=== PATIENT | male | born 1970 | race Caucasian/White ===

== ENCOUNTER → 2024-04-21 06:12 | Day surgery (SDC) | payer BC, SELFPAY | LOC: GI 06:12 | PROVIDERS: ATTENDING PHYSICIAN Internal Medicine | DX: Z12.11 Encounter for screening for malignant neoplasm of colon (principal); D12.2 Benign neoplasm of ascending colon; D12.4 Benign neoplasm of descending colon | CPT/HCPCS: 45385; 45380; 88305 ==

== ENCOUNTER 2024-07-25 01:38 | Inpatient (IN) | payer BC, SELFPAY ==
[2024-07-24 21:29] VITALS: BP 150/98
[2024-07-24 21:47] LABS: % Basophils 0.5 % (0-2); % Immature Granulocytes 0.4 % (0-0.5); % Monocytes 5.5 % (1.7-9.3); % Neutrophils 71.6 % (42.2-75.2); Absolute Basophils 0.1 10^3/uL (0-0.2); Absolute Eosinophils 0.1 10^3/uL (0-0.7); Absolute Immature Granulocytes 0.1 10^3/uL (0-0.05); Absolute Lymphocytes 2.8 10^3/uL (1.2-3.4); Absolute Monocytes 0.7 10^3/uL (0.1-0.6); Absolute Neutrophils 9.5 10^3/uL (1.4-6.5); Hematocrit 44.4 % (39.0-52.0); Hemoglobin 15.8 g/dL (13.0-18.0); Mean Corp Hgb Conc. 35.6 g/dL (33.0-37.0); Mean Corpuscular Hgb 31.7 pg (27.0-31.0); Mean Platelet Volume 9.8 fL (7.4-10.4); Nucleated Red Blood Cells % 0 % (-); Platelet Count 235 10^3/uL (130-400); Red Blood Cell Count 4.99 10^6/uL (4.70-6.10); Red Cell Dist. Width 12.2 % (11.5-14.5); Urine Albumin Trace (Neg - Trace); Urine Bilirubin Negative (Negative); Urine Character Slightly Cloudy (Clear); Urine Color Yellow; Urine Glucose Negative (Negative); Urine Ketone Trace (Negative); Urine Leukocyte Trace (Negative); Urine Nitrite Negative (Negative); Urine Occult Blood 4+ (Negative); Urine Urobilinogen Negative (Neg - 1+); White Blood Cell Count 13.2 10^3/uL (4.8-10.8)
[2024-07-24] MEDS: ZOFRAN 4 MG IV (21:47)
[2024-07-24] MEDS: TORADOL 15 MG IV (21:56)
[2024-07-24 22:01] LABS: ALT (SGPT) 33 U/L (0-50); AST (SGOT) 27 U/L (17-59); Albumin 4.7 g/dl (3.5-5.0); Alkaline Phosphatase 78 U/L (38-126); Blood Urea Nitrogen 23 mg/dl (9-20); Calcium 10.1 mg/dl (8.4-10.2); Carbon Dioxide 27 mmol/L (22-30); Chloride 100 mmol/L (98-107); Glucose 164 mg/dl (70-99); Potassium 3.9 mmol/L (3.5-5.1); Sodium 139 mmol/L (135-145); Total Bilirubin 0.7 mg/dl (0.2-1.3); Total Protein 7.2 g/dl (6.3-8.2); Urine Mucus Moderate; Urine Squamous Cell 0-2 /LPF (Few); eGFR 59.73
[2024-07-24 22:02] LABS: Urine Bacteria Moderate (Negative); Urine Red Blood Cell 70-80 /HPF (0-2); Urine White Cell 0-2 /HPF (0-5)
[2024-07-24] MEDS: NSS 1000 IV (23:46)
[2024-07-24] MEDS: DILAUDID 0.5 MG IV (23:47)
[2024-07-24 23:54] VITALS: BMI 24.0
[2024-07-25] VITALS (17 sets, daily range): BP systolic 116–154; BP diastolic 70–89; BMI 23.4
--- NOTE | 2024-07-25 00:23 | ED.GENMED ---
History of Present Illness
General
Chief Complaint: Flank Pain
Source: patient
Exam Limitations: none
Time Seen by Provider: 07/24/24 23:30
History of Present Illness
History of Present Illness:
Started with left flank back pain yesterday. Some nausea and vomiting. No fever. Remote history of kidney stones. Pain is moderate in nature. No significant relief after Toradol
Past History
Past History
ED Past Medical History: None
ED Past Surgical History: Appendectomy and Cholecystectomy
Social History
Tobacco: Non-smoker
Alcohol: None
Drug: None
Personal:
Living: with family
Review of Systems
Review of Systems
All Other Systems: Not applicable
Constitutional: Denies fever
Respiratory: Reports no symptoms
Phy Exam
Physical Exam
Physical Exam:
GENERAL: Alert and oriented. Nontoxic but appears uncomfortable
EYE: Orbits normal.
NECK: Supple, no significant adenopathy.
ENT: Pharynx without erythema
CARDIAC: Regular rate and rhythm without any obvious murmurs.
LUNGS: Clear breath sounds,normal
ABDOMEN: Soft, without focal tenderness or distention. Mild left CVA tenderness
NEUROLOGICAL: Alert and oriented , grossly non-focal
SKIN: Warm and dry, no rash or lesion, no discoloration, skin intact.
MUSCULOSKELETAL: No edema,no deformity.Good color
PSYCH: Normal and appropriate interaction.
Course
Orders/Labs/Results
Orders:
Orders
07/24/24 21:37
Ketorolac [Toradol] 15 mg .ROUTE .STK-MED ONE
Ondansetron Injectable [Zofran] 4 mg .ROUTE .STK-MED ONE
07/24/24 21:41
Complete Blood Count/With Diff Urgent
Comprehensive Metabolic Panel Urgent
Urinalysis Reflex To Culture Urgent
Date Specimen was Collected: 12/08/24
Time Specimen was Collected: 21:32
Urine Microscopic Reflex Cult Urgent
Urine Culture Urgent
CLOVER Source: U
Specimen Description:
Date Specimen was Collected: 07/24/24
Time Specimen was Collected: 21:32
07/24/24 21:44
Ketorolac [Toradol] 15 mg IV NOW STA
07/24/24 21:45
Ketorolac [Toradol] 15 mg IV NOW STA
07/24/24 21:46
Ondansetron Injectable [Zofran] 4 mg IV NOW STA
07/24/24 21:56
CT Abd/pel Without Iv Or Oral Urgent
Comment:
Reason For Exam: flank pain
07/24/24 23:39
IV Insert/Care/Rem.- Treatment PRN
0.9% Sodium Chloride 1000 ml [Nss] 1,000 ml IV BOLUS
HYDROmorphone [Dilaudid] 0.5 mg IV NOW STA
07/25/24 00:22
CefTRIAXone [Rocephin] 1,000 mg IV NOW STA
Abnormal Lab Results
07/24/24
21:41
WBC 13.2 H 10^3/uL
(4.8-10.8)
MCH 31.7 H pg
(27.0-31.0)
Abs Immat Gran (auto) 0.1 H 10^3/uL
(0-0.05)
Absolute Neuts (auto) 9.5 H 10^3/uL
(1.4-6.5)
Absolute Monos (auto) 0.7 H 10^3/uL
(0.1-0.6)
BUN 23 H mg/dl
(9-20)
Creatinine 1.4 H mg/dL
(0.7-1.3)
Glucose 164 H mg/dl
(70-99)
Urine Ketones Trace A
(Negative)
Ur Occult Blood Reflex 4+ A
(Negative)
Leukocyte Esterase Rfl Trace A
(Negative)
Urine RBC 70-80 A /HPF
(0-2)
Urine Bacteria (Reflex) Moderate A
(Negative)
07/24/24 21:41
07/24/24 21:41
Vital Signs
Initial and Last Documented VS:
Initial Vital Signs
Temp Pulse Resp BP Pulse Ox
97.7 F 93 18 150/98 100
07/24/24 21:29 07/24/24 21:29 07/24/24 21:29 07/24/24 21:29 07/24/24 21:29
Last Documented Vital Signs
Temp Pulse Resp BP Pulse Ox
97.7 F 93 18 150/98 100
07/24/24 21:29 07/24/24 21:29 07/24/24 21:29 07/24/24 21:29 07/24/24 21:29
MDM/Problems Addressed
Differential Diagnosis Includes:
Patient with obstructing stone. Slight dehydration elevation in creatinine. Moderate bacteria with 0-2 squamous although relatively insignificant leukocyte esterase and nitrate. With these issues elevated white count pain management patient will
be admitted. Urology aware
*Radiology
Radiology exam reviewed: radiology read reviewed (6 mm obstructing stone left proximal ureter with hydronephrosis)
*Pulse Oximetry
Patient hypoxic: no
*Critical Care Note
Total Time (30-74mins, 75-104mins- exclusive of procedures): Not Applicable
ED Attending Note
-
Portions of this chart may have been created with voice recognition software.� Occasional wrong word or��sound alike� substitutions may have occurred due to the inherent limitations of voice recognition software.
Discharge Plan
Departure
Patient Disposition: Admit
Date of Disposition: 07/25/24
Time of Disposition: 00:25
Presentation/result/management discussed w/ accepting MD/DO: darlene
Discharge Problem:
6 mm obstructing left ureteral stone, Leukocytosis, Bacteria in urine
Prescriptions:
No Action
oxycodone-acetaminophen 5 MG/325 MG tablet
1 tab PO Q4HPRN PRN (Reason: pain) Qty: 17 0RF
tamsulosin 0.4 MG capsule
0.4 mg PO DAILY Qty: 7 0RF
ondansetron 4 MG tablet,disintegrating
4 mg PO TIDPRN PRN (Reason: NAUSEA) Qty: 9 0RF
Referrals:
Jamin Carter DO [Family Provider] -
Interventions
Interventions:
*Risk Screen - Suicide Last Done: 07/24/24 21:29
*General Assessment Last Done: 07/24/24 21:29
*Neglect/Abuse Screening Last Done: 07/24/24 21:29
ED- Fall Risk Assessment Last Done: 07/24/24 23:40
*ED COVID-19 Vaccine History Last Done: 07/24/24 23:40
YO-Syrgpd-Xkwzhejeex Assessment Last Done: 07/24/24 23:40
ED-Male Genitourinary Assessment Last Done: 07/24/24 23:40
Discharge Date and Time
Print Language: PASHTO
[2024-07-25] MEDS: ROCEPHIN 1000 MG IV ×2 (01:06→23:38)
--- NOTE | 2024-07-25 01:32 | HPS.HSE ---
Family Physician
-
Family Physician: Jamin Carter,
Chief Complaint
-
Flank pain
History of Present Illness
Patient will has no significant past medical history except for prior episode of nephrolithiasis presents to emergency department flank pain.
Patient reports 1 day history of left-sided flank pain that started suddenly. He has been persistent sharp pain. He reports nausea. Denies any vomiting. He denies any fevers or chills. He denies dysuria. He denies hematuria.
On arrival in the emergency department he was normotensive at 150/90 with a pulse of 97 and temperature of 97.7. He had leukocytosis to 10,000 CBC otherwise unremarkable. Creatinine was 1.4, it was 1.22 years ago. UA was negative for WBCs and
nitrites but positive for moderate bacteria and trace leukocyte esterase. There was blood.
CT of the abdomen pelvis revealed an obstructing 6 mm left ureteral stone with mild hydronephrosis.
Medical History
Past Medical History
Past Medical History: Reports Other
Additional Past Medical History:
nephrolithiasis
Past Surgical History: Reports Cholecystectomy
Social History
Tobacco: Non-smoker
Alcohol: Occasional
Drug: None
Personal:
Living: With Family
Employment: Employed
Family History
Family History: Not pertinent
Allergies / Home Medications
Allergies reflects when Allergies were last updated in [facility].
Home Medications with original date entered in [facility]
Allergy/Medication List:
Allergies
Allergy/AdvReac Type Severity Reaction Status Date / Time
No Known Allergies Allergy Verified 07/24/24 21:29
Home Medications
cetirizine 10 mg tablet (Zyrtec) 10 mg PO DAILY 07/25/24
Review of Systems
-
Constitutional: Reports No Symptoms
EENT: Reports No Symptoms
Respiratory: Reports No Symptoms
Cardiac: Reports No Symptoms
Abdomen/GI: Reports No Symptoms
: Reports Flank Pain
Musculoskeletal: Reports No Symptoms
Skin: Reports No Symptoms
Neurological: Reports No Symptoms
Endocrine: Reports No Symptoms
Hematologic/Lymphatic: Reports No Symptoms
Psych: Reports No Symptoms
Physical Exam
Vital Signs
Vital Signs
Temp Pulse Resp BP Pulse Ox
97.7 F 93 18 150/98 100
07/24/24 21:29 07/24/24 21:29 07/24/24 21:29 07/24/24 21:29 07/24/24 21:29
Physical Exam
General: Well Developed, Well Nourished, No Apparent Distress and Comfortable
HEENT: NormoCephalic, Moist mucous membranes and Atraumatic
Respiratory: Clear
Cardiac: S1/S2 and Regular Rhythm
GI: Soft, Non Tender, Non Distended and Normal Bowel Sounds
Rectal: Deferred by Provider
Genito-urinary: Deferred by me
Musculoskeletal: No Clubbing, No Cyanosis and No Edema
Skin: Warm
Neuro: AO x 3
Hematologic/Lymphatic: No Lymphadenopathy
Psych: Calm
Laboratory Results
-
07/24/24 21:41
07/24/24 21:41
Laboratory Results
Total Bilirubin 0.7 mg/dl (0.2-1.3) 07/24/24 21:41
AST 27 U/L (17-59) 07/24/24 21:41
ALT 33 U/L (0-50) 07/24/24 21:41
Alkaline Phosphatase 78 U/L (38-126) 07/24/24 21:41
Data Reviewed
-
CT Scan: Report Reviewed by me
Lab Data: Labs Reviewed by me
Old Records: Reviewed
Impression/Plan
-
IMPRESSION:
Left, urolithiaisis with mild hydronephrosis. Leukocytosis but otherwise stable. Renal function appears stable.
PLAN:
1. Kidney stone
- admit to med/surg
- npo
- pain control and antiemetics
- gentle hydration
- tamsulosin
- ceftriaxone
- strain urine
- urology consultation
DVT PPX - SCDs for now
Code status - Full Code
[2024-07-25] MEDS: DILAUDID 0.5 MG IV ×3 (02:43→17:04)
[2024-07-25] MEDS: TORADOL 10 MG IV (03:37)
[2024-07-25] MEDS: LR 1000 IV ×2 (03:40→17:47)
--- NOTE | 2024-07-25 04:05 | CON.MD ---
Consultation - Medical
-
see dictated note
pt with left renal colic- pain poorly controlled
+ bacteria in urine/ cr slightly elevated
reviewed options- plan for OR tonight for stent- possible ureteroscopy
risks, benefits, alternatives and disabilities reviewed
--- NOTE | 2024-07-25 04:09 | PTCARENOTE ---
Pt arrived via stretcher from ED. pt was able to ambulate to bed from stretcher. VSS. complains of 5/10 pain (see MAR). head to toe assessment complete. bed in lowest position and locked. oriented to room and call cardozo. t
[2024-07-25 06:45] LABS: Hematocrit 41.3 % (39.0-52.0); Hemoglobin 14.1 g/dL (13.0-18.0); Mean Corp Hgb Conc. 34.1 g/dL (33.0-37.0); Mean Corpuscular Hgb 31.2 pg (27.0-31.0); Mean Corpuscular Volume 91.4 fL (80.0-94.0); Platelet Count 186 10^3/uL (130-400); Red Blood Cell Count 4.52 10^6/uL (4.70-6.10); Red Cell Dist. Width 12.2 % (11.5-14.5); White Blood Cell Count 10.6 10^3/uL (4.8-10.8)
[2024-07-25 06:52] LABS: Blood Urea Nitrogen 25 mg/dl (9-20); Calcium 9.5 mg/dl (8.4-10.2); Carbon Dioxide 26 mmol/L (22-30); Chloride 106 mmol/L (98-107); Estimated Creatinine Clearance 67 ml/min; Glucose 122 mg/dl (70-99); Potassium 4.6 mmol/L (3.5-5.1); Sodium 140 mmol/L (135-145); eGFR > 60.00
[2024-07-25] MEDS: FLOMAX 0.4 MG PO (09:01)
[2024-07-25] MEDS: ZYRTEC 10 MG PO (09:01)
--- NOTE | 2024-07-25 10:34 | CM ---
Reviewed the chart notes and spoke with the patient at the bedside. Patient admitted left ureteral calculus. Left stent placement and possible ureteroscopy today. The patient resides with his and daughter in a two story home with
approximately three steps to enter. The patient reports no DME/VN/SNF in the past. The patient confirmed his pharmacy of choice is the [facility] [place]. continues to be available to patient/family and is monitoring medical plan
for needs at discharge.
Plan: Discharge to home when medically stable.
[2024-07-25 11:14] LABS: Glycohemoglobin (HgbA1c) 5.4 % (4.0-5.6)
--- NOTE | 2024-07-25 12:12 | W.PN.HOSP.TC ---
Today's Communication/Plan
-
Continue n.p.o. and IV fluids. Likely 4 OR later today. Strain all urine
Continue ceftriaxone
Await cultures.
Assessment / Plan
Assessment / Plan
53-year-old male with history of nephrolithiasis presenting with flank pain
CT abdomen and pelvis-6 mm proximal left ureteral calculus with mild left hydro utero nephrosis
Cardiovascular system S1 S2 Appreciated.
Chest clear to auscultation
Abdomen soft right lumbar area/CVA angle tenderness
No pedal edema noted.
# Nephrolithiasis with mild hydroureteronephrosis
Continue hydration
Continue ceftriaxone and wait for urine cultures
Strain urine
Continue Flomax
Urology evaluation for possible cystoscopy ureteroscopy/stent
Renal function stable
# Hyperglycemia-check hemoglobin A1c
# Degenerative changes at L5-S1 with small to moderate posterior disc protrusion
# DVT prophylaxis-SCDs for now
# Full code
Plan of care discussed with the patient.
Anticipated Discharge: Within 24 hours
Subjective/Interval History
-
Date of Service: July 25, 2024
Objective Data
-
Labs:
Laboratory Results
07/25/24
06:06
WBC 10.6
Hgb 14.1
Hct 41.3
Plt Count 186 D
Sodium 140
Potassium 4.6
Chloride 106
Carbon Dioxide 26
BUN 25 H
Creatinine 1.3
Glucose 122 H
Calcium 9.5
Vital Signs:
Vital Signs
Temp Pulse Resp BP Pulse Ox
97.6 F 79 18 116/70 97
07/25/24 08:00 07/25/24 08:00 07/25/24 08:00 07/25/24 08:00 07/25/24 08:00
I&O
12/04/0907/25/24 07/26/24
06:59 06:59 06:59
Intake Total 300 / 300
Output Total 150 / 150
Balance 150 / 150
--- NOTE | 2024-07-25 16:27 | W.IMMPOSTOP ---
Surgical Immed Post Op Note
-
Primary Surgeon:
darlene
Assisting Surgeon:
Pre-op Diagnosis:
left ureteral stone
Post-op Diagnosis:
left ureteral stone and mid ureteral stx
Procedure Performed:
cysto/left retrograde/left ureteroscopy and stent
Anesthesia Type:
gen
Specimen / Cultures:
none
Estimated Blood Loss:
2cc
Complications:
none
Operative Findings:
large prox stone
could not pass ureteroscopy due to mid ureteral narrowing
stent placed
discharge tonight if stable on empiric cefdinir- no evid of infx at time of surgery
outpt stone surgery in 2 weeks
[2024-07-25] MEDS: Pyridium 200 MG PO (17:05)
--- NOTE | 2024-07-25 18:27 | PTCARENOTE ---
pt returned to room from PACU @1800. pt alert and awake. pt educated regarding post operative plan of care with verbalized understanding. offering n/o pain at present time. tolerating sips of catherine freddy. pt instructed to order dinner. pt
verbalized desire to stay tonight for pain management. IVF restarted. remains due to void. care ongoing.
[2024-07-25] MEDS: SENOKOT-S 1 TABLET PO (20:18)
[2024-07-25] MEDS: FLUSH (NSS) 2 FLUSH IV (23:38)
[2024-07-25] MEDS: STERILE WATER FOR INJECTION 10 ML IV (23:38)
[2024-07-26 03:10] VITALS: BP 124/73
[2024-07-26] MEDS: LR 1000 IV (05:31)
[2024-07-26 07:28] LABS: Blood Urea Nitrogen 21 mg/dl (9-20); Calcium 8.9 mg/dl (8.4-10.2); Carbon Dioxide 26 mmol/L (22-30); Chloride 105 mmol/L (98-107); Estimated Creatinine Clearance 79 ml/min; Glucose 104 mg/dl (70-99); Potassium 4.1 mmol/L (3.5-5.1); Sodium 140 mmol/L (135-145); eGFR > 60.00
--- NOTE | 2024-07-26 08:11 | W.PN.URO.CBU ---
Today's Communication / Plan
-
discharge
Assessment / Plan
-
stone s/p stent
again reviewed instructions with pt and (by phone)
for discharge today with cefdinir- i will follow up ucx as outpt
pt to call office to schedule stone surgery
Diagnosis
-
Date of Service: July 26, 2024
-
Patient Diagnosis:
stone
Post Op Day:
left ureteral stent 07/25
Subjective
-
pt stayed overnight due to some nausea
feels better this am
no fevers
Objective
-
Vital Signs
Temp Pulse Resp BP Pulse Ox
98.2 F 86 18 124/73 96
07/26/24 03:10 07/26/24 03:10 07/26/24 03:10 07/26/24 03:10 07/26/24 03:10
Intake and Output
07/25/24 07/26/24 07/27/24
06:59 06:59 06:59
Intake Total 300 / 300 2830 / 2830
Output Total 150 / 150 1250 / 1250
Balance 150 / 150 1580 / 1580
Intake:
Oral fluids 1080 / 1080
IV fluids (Total) 300 / 300 1750 / 1750
normosol 250 / 250
Output:
Urine, Voided 150 / 150 1250 / 1250
Other:
Number of approximated MODERATE 2
amounts of urine
Laboratory Results
07/25/24 06:06
07/26/24 06:22
Review of Systems
-
Constitutional: No Symptoms
Respiratory: No Symptoms
Cardiac: No Symptoms
Abdomen/GI: No Symptoms
: Frequency
Physical Exam
-
General - no acute distress
[2024-07-26] MEDS: ZYRTEC 10 MG PO (08:25)
[2024-07-26] MEDS: ULTRAM 50 MG PO (08:26)
[2024-07-26] MEDS: SENOKOT-S 1 TABLET PO (08:26)
[2024-07-26] MEDS: FLOMAX 0.4 MG PO (08:26)
[2024-07-26] MEDS: MIRALAX 17 GRAMS PO (08:27)
[2024-07-26 08:28] VITALS: BP 130/80
--- NOTE | 2024-07-26 10:44 | W.PN.UPDATE ---
Update Note
Progress Note Update
Patient discharged as per urology/prior hospitalist evaluation. Not seen by hospitalist today.
--- NOTE | 2024-07-26 11:06 | CM ---
Reviewed the chart notes. Patient for discharge today to home with no needs. Patient's spouse informed. CM continues to be available to patient/family and is monitoring medical plan for needs at discharge.
Plan: Discharge to home today. No needs identified at this time.
== END 2024-07-26 10:14 | disposition home or self-care (01) | DRG 661 ==
LOC: 2 SOUTH 01:38
PROVIDERS: Emergency Medicine; Hospitalist; ADMITTING PHYSICIAN Internal Medicine; ATTENDING PHYSICIAN Internal Medicine; CONSULT PHYSICIAN Specialist; EMERGENCY PHYSICIAN Emergency Medicine; FAMILY PHYSICIAN Family Medicine
PROC: 0T778DZ Dilation of Left Ureter with Intraluminal Device, Via Natural or Artificial Opening Endoscopic (ICD-10-PCS; 2024-07-25)
DX: N13.2 Hydronephrosis with renal and ureteral calculous obstruction (principal)
CPT/HCPCS: 74176; 74420; 76000; 80048; 80053; 81003; 81015; 83036; 85025; 85027; 87086; 96361; 96374; 96375; 99285; C1758; C1894; C2617

== ENCOUNTER 2024-08-12 06:16 | Day surgery (SDC) | payer BC, SELFPAY ==
[2024-08-11 13:18] VITALS: BMI 22.7
[2024-08-12] VITALS (9 sets, daily range): BP systolic 135–161; BP diastolic 85–111; BMI 22.7
[2024-08-12] MEDS: FLOMAX 0.4 MG PO (11:49)
[2024-08-12] MEDS: Pyridium 200 MG PO (11:50)
[2024-08-12] MEDS: TYLENOL 650 MG PO (12:53)
[2024-08-14 10:17] LABS: Stone Analysis Mass 26 mg
== END 2024-08-12 13:22 | disposition home or self-care (01) ==
LOC: SDS 06:16
PROVIDERS: ATTENDING PHYSICIAN Specialist; FAMILY PHYSICIAN Family Medicine
DX: N13.2 Hydronephrosis with renal and ureteral calculous obstruction (principal)
CPT/HCPCS: 52352; 52332; 36415; 74018; 76000; 82365; 93005; C1894; C2617

== ENCOUNTER → 2024-11-10 08:22 | Outpatient (REF) | payer SELFPAY | LOC: RAD 08:22 | PROVIDERS: ATTENDING PHYSICIAN Family Medicine | DX: Z13.6 Encounter for screening for cardiovascular disorders (principal) | CPT/HCPCS: 75571 ==

== ENCOUNTER → 2024-11-17 11:19 | Outpatient (REF) | payer BC, SELFPAY | LOC: RAD 11:19 | PROVIDERS: ATTENDING PHYSICIAN Specialist; FAMILY PHYSICIAN Family Medicine | DX: N13.1 Hydronephrosis with ureteral stricture, not elsewhere classified (principal) | CPT/HCPCS: 76770 ==